=== PATIENT | male | born 1970 | race Hispanic/Latino ===

== ENCOUNTER 2017-11-18 12:15 | Emergency (ER) | payer MEDICAID ==
[2017-11-18 12:57] VITALS: BMI 29.1
[2017-11-18] MEDS ORDERED: Morphine 4 mg/ml ISec IVP STA ×2 (13:03→15:04)
--- NOTE | 2017-11-18 13:11 | ED PDOC ---
Arrival/HPI - General Chief Complaint: GI Problem Time Seen by Provider: 11/18/17 13:02 Historian: Patient - History of Present Illness Narrative History of Present Illness (Text): 46yo male, history of alcoholic pancreatitis, comes to Emergency room reporting he has had upper abdominal pain x 3 days, radiating to his back, with associated nausea and vomiting. Patient reports 3 episodes of vomiting with "tiny specks of blood" in the emesis. Patient denies any alcohol use and states he is 3 years sober. Otherwise, no fever, chills, chest pain or shortness of breath. Time/Duration: < week Symptom Onset: Gradual Quality: Stabbing, Throbbing Past Medical History - Provider Review Nursing Documentation Reviewed: Yes - Cardiac Hx Cardiac Disorders: No - Pulmonary Hx Respiratory Disorders: No - Neurological Hx Neurological Disorder: No - HEENT Hx HEENT Disorder: No - Renal Hx Renal Disorder: No - Endocrine/Metabolic Hx Endocrine Disorders: No - Hematological/Oncological Hx Blood Disorders: No - Integumentary Hx Dermatological Disorder: No - Musculoskeletal/Rheumatological Hx Musculoskeletal Disorders: No - Gastrointestinal Hx Gastrointestinal Disorders: Yes Hx Pancreatitis: Yes - Genitourinary/Gynecological Hx Genitourinary Disorders: No - Psychiatric Hx Psychophysiologic Disorder: Yes Hx Anxiety: Yes Hx Depression: Yes Hx Substance Use: No - Surgical History Hx Orthopedic Surgery: Yes (right knee and ankle) Family/Social History - Physician Review Nursing Documentation Reviewed: Yes Family/Social History: No Known Family HX Smoking Status: Current Some Days Smoker Hx Alcohol Use: Yes (last drink 3 years ago) Hx Substance Use: No Allergies/Home Meds Allergies/Adverse Reactions: Allergies metoclopramide [From Reglan] Adverse Reaction (Verified 11/18/17 12:56) DYSTONIC REACTION prochlorperazine [From Compazine] Adverse Reaction (Verified 11/18/17 12:56) ANXIETY Review of Systems - Physician Review All systems were reviewed & negative as marked: Yes (per HPI) - Review of Systems Constitutional: absent: Fevers Respiratory: absent: SOB Cardiovascular: absent: Chest Pain Gastrointestinal: Abdominal Pain, Nausea, Vomiting Musculoskeletal: Back Pain Physical Exam - Physical Exam Narrative Physical Exam (Text): Gen: VS reviewed, alert, well developed, well nourished, nontoxic, mild distress. ENT: normal pharynx Eye: EOMI, PERRL Neck: no JVD, supple, no adenopathy CV: regular rate, regular rhythm, no rubs, no murmur, no gallops, S1, S2, pulses equal and strong Pulm: no distress, clear to auscultation, no wheeze, no rhonchi, breath sounds equal, no rales Abd: soft, (+) moderate tendernes to epigastric region, no guarding, no rebound, no rigidity, normal bowel sounds Ext: no edema Skin: good color, no rash, no cyanosis Psych: responds appropriately to questions, normal affect Neuro: oriented x 3, CN2-12 intact grossly, motor intact, sensation intact Vital Signs Temp Pulse Resp BP Pulse Ox 11/18/17 12:57 97.7 F 85 18 142/88 96 Medical Decision Making ED Course and Treatment: Impression: 46yo male with abdominal pain, associated nausea and vomiting Plan: -- Labs -- EKG -- Zofran 4mg IV -- Morphine 2mg IV -- US Galbladder/Pancreas -- Reassess and disposition Progress Notes: 11/18/17 21:24 patient left the department without finishing treatment. i did not witness the patient leaving the department. patient was awaiting CT scan after an unremarkable US. 11/18/17 21:30 - RAD Interpretation Narrative RAD Interpretations (Text): 11/18/17 17:31 US Galbladder FINDINGS: LIVER: Measures 15.1 cm in length. Echogenic liver may be seen in setting of hepatic parenchymal disease or fatty infiltration. No focal hepatic mass identified. The main portal vein appears patent with normal directional flow. No intrahepatic bile duct dilatation. GALLBLADDER: Contracted gallbladder. No gallstones. No gallbladder wall thickening or pericholecystic edema. Negative sonographic Anderson's sign as assessed by the direct care professional. COMMON BILE DUCT: Measures 5 mm. PANCREAS: Not well-visualized. RIGHT KIDNEY: Measures 11.1 x 4.3 x 5.1 cm. No obstructing calculus or hydronephrosis identified. AORTA: Limited visualization appears grossly unremarkable. IVC: Limited visualization appears grossly unremarkable. OTHER FINDINGS: None . IMPRESSION: Echogenic liver may be seen in setting of hepatic parenchymal disease or fatty infiltration. Contracted gallbladder appears otherwise grossly unremarkable. - EKG Interpretation EKG Interpretation (Text): 11/18/17 21:31 11/18/17 12:59 EKG: NSR 74 BPM Normal QRS Normal axis No ST/T wave changes Interpreted by ED Physician: Yes - Scribe Statement The provider has reviewed the documentation as recorded by the Anisha Cabrera Provider Scribe Attestation: All medical record entries made by the Scribe were at my direction and personally dictated by me. I have reviewed the chart and agree that the record accurately reflects my personal performance of the history, physical exam, medical decision making, and the department course for this patient. I have also personally directed, reviewed, and agree with the discharge instructions and disposition. Disposition/Present on Arrival - Present on Arrival Any Indicators Present on Arrival: No History of DVT/PE: No History of Uncontrolled Diabetes: No Urinary Catheter: No History of Decub. Ulcer: No History Surgical Site Infection Following: None - Disposition Have Diagnosis and Disposition been Completed?: Yes Diagnosis: Abdominal pain Disposition: LEFT W/O TREATMENT - ER ONLY Disposition Time: 21:31 Condition: STABLE Referrals: PCP,NO [Primary Care Provider] - Follow up with primary Forms: [employer] (I[place]ic)
[2017-11-18 14:16] LABS: BASO # 0.03 K/mm3 (0.0-2.0); BASO % 0.5 % (0.0-3.0); EOS # 0.4 (0.0-0.7); EOS % 5.8 % (1.5-5.0); GRAN # 3.81 (1.4-6.5); GRAN % 63.6 % (50.0-68.0); LYMPH # 1.5 (1.2-3.4); LYMPH % 24.4 % (22.0-35.0); MEAN CELL VOLUME 87.9 fl (80.0-105.0); MEAN PLATELET VOLUME 8.8 fl (7.0-11.0); MONO # 0.3 (0.1-0.6); MONO % 5.7 % (1.0-6.0); RBC 4.14 10^6/uL (3.5-6.1); RED CELL DISTRIBUTION WIDTH 14.2 % (11.5-14.5)
[2017-11-18 14:26] LABS: INR 1.01; PARTIAL THROMBOPLASTIN TIME 33.3 Seconds (25.1-36.5); PROTHROMBIN TIME 11.5 SECONDS (9.4-12.5)
[2017-11-18 14:32] LABS: ALB/GLOB RATIO 1.3 (1.1-1.8); ALBUMIN 3.8 g/dL (3.0-4.8); ALT/SGPT 38 U/L (7-56); AST/SGOT 45 U/L (17-59); BLOOD UREA NITROGEN 18 mg/dL (7-21); CALCIUM 8.5 mg/dL (8.4-10.5); GFR NON-AFRICAN AMERICAN > 60; LIPASE 227 U/L (23-300)
[2017-11-18 14:40] LABS: TROPONIN I < 0.01 ng/mL
--- NOTE | 2017-11-18 14:48 | CARD ---
APPROVED REPORT Date of service: 11/18/2017 EKG Measurement Heart [id number] <Conclusion> Normal sinus rhythm with sinus arrhythmia Normal ECG
--- NOTE | 2017-11-18 17:13 | US ---
Date of service: 11/18/2017 HISTORY: pain, ?gallstones COMPARISON: None available. TECHNIQUE: Sonographic evaluation of the right upper quadrant of the abdomen. FINDINGS: LIVER: Measures 15.1 cm in length. Echogenic liver may be seen in setting of hepatic parenchymal disease or fatty infiltration. No focal hepatic mass identified. The main portal vein appears patent with normal directional flow. No intrahepatic bile duct dilatation. GALLBLADDER: Contracted gallbladder. No gallstones. No gallbladder wall thickening or pericholecystic edema. Negative sonographic Anderson's sign as assessed by the tab cutting machine operator. COMMON BILE DUCT: Measures 5 mm. PANCREAS: Not well-visualized. RIGHT KIDNEY: Measures 11.1 x 4.3 x 5.1 cm. No obstructing calculus or hydronephrosis identified. AORTA: Limited visualization appears grossly unremarkable. IVC: Limited visualization appears grossly unremarkable. OTHER FINDINGS: None . IMPRESSION: Echogenic liver may be seen in setting of hepatic parenchymal disease or fatty infiltration. Contracted gallbladder appears otherwise grossly unremarkable.
[2017-11-18] MEDS ORDERED: Iohexol 350 MG/100 ML VIAL ONE (18:46)
[2017-11-18 22:59] VITALS: TEMP 98; O2SAT 96
[2017-11-18 23:00] VITALS: BP 144/72; PULSE 88; RESP 16
== END 2017-11-18 21:00 | disposition left against medical advice (07) ==
LOC: ED 12:15 → MERGE 12:15 → ED 21:00
DX: R10.9 Unspecified abdominal pain (principal)
CPT/HCPCS: 76705; 80053; 80320; 83690; 83735; 84484; 85025; 85610; 85730; 93005; 96374; 96375; 99284; J1885; J2270; J2405; Q9967